=== PATIENT | male | born 1960 | race Two or more races ===

== ENCOUNTER 2018-10-18 22:31 | Emergency (ER) | payer OTHER ==
[~2018-10-18] VITALS: Ht 182.9 cm; Wt 122.5 kg
[~2018-10-18 22:31] MED LIST: COZAAR50 MG PO; GLUCOTROL10 MG PO; IBUPROFEN800 MG PO; LOVAZA1 G PO; LYRICA150 MG PO; METFORMIN HCL1000 MG PO; SEPTRA DS TABLE1 TAB PO; ZEBETA10 MG PO
[2018-10-19] MEDS ORDERED: CELECOXIB100 MG PO (07:59)
[2018-10-19] MEDS ORDERED: BACTRIM DS TAB1 EACH PO (07:59)
== END 2018-10-19 08:28 | disposition home or self-care (01) ==
LOC: ER 22:31
DX: L03.116 Cellulitis of left lower limb (principal); E11.9 Type 2 diabetes mellitus without complications

== ENCOUNTER 2019-03-03 13:38 | Emergency (ER) | payer OTHER ==
[~2019-03-03] VITALS: Ht 182.9 cm; Wt 124.7 kg
[~2019-03-03 13:38] MED LIST changes: +BACTRIM DS TAB1 EACH PO; +CELECOXIB100 MG PO
== END 2019-03-03 15:39 | disposition home or self-care (01) ==
LOC: ER 13:38
DX: L97.428 Non-pressure chronic ulcer of left heel and midfoot with other specified severity (principal)

== ENCOUNTER 2019-03-05 09:49 | Outpatient (CLI) | payer OTHER | END 2019-03-05 09:53 | disposition home or self-care (01) | LOC: RAD 09:49 | DX: M79.672 Pain in left foot (principal) ==

== ENCOUNTER → 2019-11-05 | Outpatient (CLI) | payer OTHER | END | disposition home or self-care (01) | LOC: RAD 09:29 | DX: M19.072 Primary osteoarthritis, left ankle and foot (principal) ==

== ENCOUNTER 2019-11-14 15:48 | Inpatient (IN) | payer OTHER ==
[~2019-11-14] VITALS: Ht 182.9 cm; Wt 124.7 kg
[2019-11-14] MEDS ORDERED: LANTUS SOL100 UNIT/1 (16:16)
--- NOTE | 2019-11-14 16:28 | NUR ---
PTE ALERTA Y ORIENTADO X 3 ESFERAS QUIEN REFIERE TENER OSTEOMELITIS,PTE CON ULCERA EN PIE LT CON PROFUNDA Y SUPURANDO CON OLOR FETIDO.PTE CON ESTUDIOS.
--- NOTE | 2019-11-14 17:46 | NUR ---
PT ALERTA Y ORIENTADO X3 ESFERAS SE LE ORIENTA SOBRE TX Y REFIERE ENTEDER. SE ROSY MUESTRAS DE PASCALE Y VENOPUNCION CON TECNICAS ASEPTICAS. PT TOLERA TX.
--- NOTE | 2019-11-14 23:00 | NUR ---
PACIENTE ALERTA Y ORIENTADO EN PATRICIA BILL ESFERAS EN MIGUEL ÁNGEL CON BUEN PATRON RESPIRATORIO Y PIEL TIBIA AL TACTO. SE OBSERVA H/L PATENTE RUDOLPH DE EDEMA Y ENROJECIMIENTO EN MANO RT. PENDIENTE AIXA DE CMP Y CONSULTA CON DR. Javad RAMOS. SE MANTIENE BAJO OBSERVACION POR CAMBIOS.
--- NOTE | 2019-11-15 07:12 | NUR ---
SE RECIBE PTE EL CUAL SE ENCUENTRA EN MIGUEL ÁNGEL CON AREA DE VENOPUNCION PATENTE PEND A CONSULTA CON .
[2019-11-28] MEDS ORDERED: XARELTO20 MG PO (14:14)
== END 2019-12-01 16:32 | disposition designated cancer center or children's hospital (05) | DRG 638 ==
LOC: ER 15:48 → MEDI 11-15 07:24 → MEDJ 11-24 13:45
PROVIDERS: ADMIT Internal Medicine
PROC: B44HZZZ Ultrasonography of Bilateral Lower Extremity Arteries (ICD-10-PCS; 2019-11-15)
PROC: 4A12X4Z Monitoring of Cardiac Electrical Activity, External Approach (ICD-10-PCS; 2019-11-15)
PROC: B245ZZZ Ultrasonography of Left Heart (ICD-10-PCS; principal; 2019-11-16)
PROC: 05HY33Z Insertion of Infusion Device into Upper Vein, Percutaneous Approach (ICD-10-PCS; 2019-11-16)
PROC: 8E0ZXY6 Isolation (ICD-10-PCS; 2019-11-21)
PROC: 4A033R1 Measurement of Arterial Saturation, Peripheral, Percutaneous Approach (ICD-10-PCS; 2019-11-21)
DX: E11.69 Type 2 diabetes mellitus with other specified complication (principal); L97.429 Non-pressure chronic ulcer of left heel and midfoot with unspecified severity; M86.172 Other acute osteomyelitis, left ankle and foot; M86.8X7 Other osteomyelitis, ankle and foot; L03.116 Cellulitis of left lower limb; E11.65 Type 2 diabetes mellitus with hyperglycemia; E11.621 Type 2 diabetes mellitus with foot ulcer; I12.9 Hypertensive chronic kidney disease with stage 1 through stage 4 chronic kidney disease, or unspecified chronic kidney disease; E11.22 Type 2 diabetes mellitus with diabetic chronic kidney disease; N18.9 Chronic kidney disease, unspecified; N17.9 Acute kidney failure, unspecified; I48.0 Paroxysmal atrial fibrillation; Z79.01 Long term (current) use of anticoagulants; E66.9 Obesity, unspecified; I73.9 Peripheral vascular disease, unspecified; J10.1 Influenza due to other identified influenza virus with other respiratory manifestations